=== PATIENT | female | born 1975 | race Caucasian/White ===

== ENCOUNTER 2019-02-16 05:59 | Observation (INO) ==
--- NOTE | 2019-01-22 10:38 | PAT Medication Instructions ---
Medication Instructions Date of Service January 22, 2019 Home Medications aspirin 81 mg PO QPM escitalopram oxalate [Lexapro] 5 mg PO QPM lisinopril 5 mg PO QAM multivitamin 1 tab PO QAM simvastatin 40 mg PO HS ASK your prescriber and surgeon aspirin 81 mg PO QPM DO NOT take the morning of surgery lisinopril 5 mg PO QAM multivitamin 1 tab PO QAM Take evening before surgery escitalopram oxalate [Lexapro] 5 mg PO QPM simvastatin 40 mg PO HS Other Notes If you have any questions please call us at [phone] or [phone] or [phone] or [phone]
--- NOTE | 2019-01-26 14:29 | Anesthesiology Consultation ---
Date of Service January 26, 2019 Assessment & Plan (1) Encounter for pre-operative examination: - Check test AM DOS - ASA instructions per surgeon/presciber. Chart Review Chart Review: Acceptable Risk for Surgery and Patient seen in Pre Admission Testing Teaching & Discussion Pre-Anesthesia Teaching/Discussion Notes: Instructed NPO after midnight before surgery,except medications with 15 cc of water. Medication instructions provided according to the PAT guidelines. History Surgery Operation Date: 02/16/19 10:50 Proposed Procedures p Robotic Total Laparoscopic Hysterectomy - Meir Meraz MD Height/Weight Height: 5 ft 2 in Weight: 67.7 kg Allergies Allergy/AdvReac Type Severity Reaction Status Date / Time No Known Drug Allergies Allergy Verified 01/20/19 12:55 adhesive AdvReac Redness of Verified 01/20/19 12:55 Skin Medications Home Medications Medication Instructions Recorded Confirmed Last Taken aspirin 81 mg PO QPM 01/20/19 01/20/19 Unknown escitalopram oxalate [Lexapro] 5 mg PO QPM 01/20/19 01/20/19 Unknown lisinopril 5 mg PO QAM 01/20/19 01/20/19 Unknown multivitamin 1 tab PO QAM 01/20/19 01/20/19 Unknown simvastatin 40 mg PO HS 01/20/19 01/20/19 Unknown Past Medical History Medical History Anxiety Dysfunctional uterine bleeding Hyperlipidemia Hypertension IBS (irritable bowel syndrome) Migraine Palpitations S/P UNREMARKABLE HOLTER MONITOR Stroke 2010= LEFT CAROTID ARTERY DISSECTION= NO RESIDUAL EFFECTS; ON ASA Uterine fibroid Exercise / Class Metabolic Activity II 4-5 Yardwork/Stairs/Walk up hill Past Family History Family History Mother Family history of diabetes mellitus Family/Other Family history of esophageal cancer Past Surgical History Surgical History History of surgery ESSURE IMPLANTATION History of wisdom tooth extraction Past Anesthesia History No Hx of Anesthesia Complications and No Family Hx of Anesthesia Complications History of PONV No Hx of PONV and No Hx of Motion Sickness Social History Smoking Status: Never smoker Do You Dip or Chew Tobacco: No Hx Alcohol Use: Yes Alcohol type: beer, wine and hard liquor alcohol intake frequency: holidays/special occasions only Hx Substance Use: No substance use type: does not use Review of Systems Patient denies chest pain, shortness of breath, dyspnea on exertion, reflux, cough, wheezing, palpitations. Physical Exam Vital Signs VITALS BP 109/78 P 70 TEMP 98.4 SP02 97%RA RESP 16 PHYSICAL Full neck and c-spine range of motion. Full TMJ range of motion. TMD 3.5 finger breaths Mallampati Score 2 Dentition: intact Lungs: clear throughout to auscultation Cardiac: regular rate and rhythm, no murmurs noted Spine: scoliosis Carotid arteries: negative bruit Extremities: no edema Testing Laboratory Results 01/26/19 14:43 Blood Type A Positive Antibody Screen NEGATIVE Chest X-Ray Date: 03/26/18 Findings: + NAD Mild leftward thoracolumbar scoliosis. Other Testing 01/15/19 WBC 7.3 H/H 11.1/35.8 PLT 407
[2019-02-16] MEDS ORDERED: CEFAZOLIN 2000MG 2,000 MG/15 ML SYR IV SCH (06:00)
[2019-02-16] MEDS ORDERED: PHENAZOPYRIDINE HCL 100 MG TAB PO SCH (06:00)
[2019-02-16] MEDS ORDERED: LR 15ML/HR IV SCH (06:00)
[2019-02-16] MEDS ORDERED: LACTATED RINGER'S 1,000 ML IV SCH (06:00)
[2019-02-16 06:51] LABS: Basophils # (auto) 0.03 K/uL (0-0.2); Basophils % (auto) 0.4 %; Eosinophils # (auto) 0.11 K/uL (0-0.5); Eosinophils % (auto) 1.3 %; Hematocrit (blood only) 33.5 % (37-47); Hemoglobin 10.7 g/dL (12.0-16.0); Immature Granulocytes # (auto) 0.02 K/uL (0.00-0.02); Immature Granulocytes % (auto) 0.2 %; Lymphocytes # (auto) 2.89 K/uL (1.2-3.4); Lymphocytes % (auto) 34.1 %; Mean Corpuscular Volume 78.5 fL (80-100); Mean Platelet Volume 9.5 fL (7.4-10.4); Monocytes # (auto) 0.57 K/uL (0.11-0.59); Monocytes % (auto) 6.7 %; Neutrophils # (auto) 4.85 K/uL (1.4-6.5); Neutrophils % (auto) 57.3 %; Platelet Count 341 K/uL (130-400); RDW Coefficient of Variation 15.6 % (11.5-14.5); RDW Standard Deviation 45.1 fL (36.4-46.3); Red Blood Count 4.27 M/uL (4.2-5.4); White Blood Count 8.47 K/uL (4.8-10.8)
[2019-02-16 06:54] LABS: Mean Corpuscular Hgb Conc 31.9 g/dL (32-36)
[2019-02-16] MEDS ORDERED: ONDANSETRON INJ 2 MG/ML 2 ML VIAL IV PRN ×2 (06:54→10:02)
[2019-02-16] MEDS ORDERED: ePHEDrine sulfate 50 MG/ML AMP IV PRN (06:54)
[2019-02-16] MEDS ORDERED: ATROPINE SULFATE 0.1 MG/ML 10ML SYR IV PRN (06:54)
[2019-02-16] MEDS ORDERED: PHENYLEPHRINE 100MCG/ML 5ML SYR IV PRN (06:54)
[2019-02-16] MEDS ORDERED: MEPERIDINE HCL 25 MG/ML CARP IV PRN (06:54)
[2019-02-16] MEDS ORDERED: LABETALOL HCL IV 5 MG/ML 20ML IV PRN (06:54)
[2019-02-16] MEDS ORDERED: BUPIVACAINE 0.5 % 5 MG/1 ML MPF 30ML VIAL ONE (07:00)
[2019-02-16] MEDS ORDERED: GLYCOPYRROLATE 0.2 MG/ML VIAL ONE (07:01)
[2019-02-16] MEDS ORDERED: PROPOFOL IV EMULSION 10 MG/ML 20 ML VIAL IV ONE (07:01)
[2019-02-16] MEDS ORDERED: NEOSTIGMINE METHYLSULFATE 5 MG/5 ML SYR ONE (07:01)
[2019-02-16] MEDS ORDERED: ONDANSETRON INJ 2 MG/ML 2 ML VIAL ONE (07:01)
[2019-02-16] MEDS ORDERED: LIDOCAINE HCL 2% 2 ML VIAL/AMP(20MG/ML) INFIL ONE (07:01)
[2019-02-16] MEDS ORDERED: DEXAMETHASONE SOD INJ 4 MG/ML VIAL ONE (07:01)
[2019-02-16] MEDS ORDERED: fentaNYL citrate 100 MCG/2 ML VIAL ONE (07:02)
[2019-02-16] MEDS ORDERED: MIDAZOLAM HCL 1 MG/ML 2ML VIAL ONE (07:02)
--- NOTE | 2019-02-16 07:11 | History & Physical Bridge Note ---
Date of Service February 16, 2019 History & Physical Bridge Note I have examined the patient, reviewed the History & Physical and in the interval since the performance of the History & Physical I have noted the following changes of clinical significance: no changes noted
[2019-02-16] MEDS ORDERED: ROCURONIUM BROMIDE 10 MG/ML 5 ML VIAL ONE (08:37)
[2019-02-16] MEDS ORDERED: KETOROLAC 30 MG/ML VIAL ONE (09:47)
[2019-02-16] MEDS ORDERED: KETOROLAC 30 MG/ML VIAL IV PRN (10:02)
[2019-02-16] MEDS ORDERED: OXYCODONE/ACETAMINOPHEN 5mg/325mg TAB PO PRN (10:02)
[2019-02-16] MEDS ORDERED: SIMETHICONE 80 MG CHEW PO PRN (10:02)
[2019-02-16] MEDS ORDERED: PROMETHAZINE HCL 12.5 MG in SODIUM CHLORIDE 0.9% 50 ML IV PRN (10:02)
[2019-02-16] MEDS ORDERED: ACETAMINOPHEN 325 MG TAB PO PRN (10:02)
[2019-02-16] MEDS ORDERED: BISACODYL 10 MG SUPP PR PRN (10:02)
--- NOTE | 2019-02-16 10:02 | Post Operative Brief Note ---
Immediate Post Op Note v1 Date of Surgery February 16, 2019 Pre & Post Diagnosis Operation Date: 02/16/19 07:30 Pre-Op Diagnosis: Dysfunctional Uterine Bleeding, Uterine Fibroid Post-Op Diagnosis: Dysfunctional Uterine Bleeding, Uterine Fibroid, Endometriosis Procedure Operation Date: 02/16/19 07:30 Actual Procedures p Robotic Assisted Total Laparoscopic Hysterectomy with Bilateral Salpingectomies, left oophorectomy and Cystoscopy. (Not Applicable) - Meir Meraz MD Surgeon Meir Meraz MD assistant professor of history: Dr. Downing Office Mover Dr. Downing Estimated Blood Loss 20 Findings Consistent with Post-Op Diagnosis Drains Dennison Catheter
[2019-02-16] MEDS: fentaNYL citrate 100 MCG/2 ML VIAL IV PRN ×4 (10:23→10:40)
[2019-02-16] MEDS: HYDROmorphone INJ 1 MG/ML SYRINGE IV PRN ×2 (10:50→10:55)
--- NOTE | 2019-02-16 11:20 | Anesthesiology Progress Note ---
Date of Service February 16, 2019 Anesthesia Post Procedure Vital Signs Vital Signs: Temp Pulse Pulse Resp BP Pulse Ox 02/16/19 11:10 37.1 C 98 H 16 114/70 97 02/16/19 11:00 37.1 C 101 H 16 111/69 97 02/16/19 10:50 36.8 C 95 H 13 111/75 97 02/16/19 10:40 36.8 C 97 H 12 113/71 98 02/16/19 10:30 36.8 C 88 13 119/84 99 02/16/19 10:20 36.8 C 91 H 14 128/84 100 02/16/19 10:12 36.8 C 95 H 16 128/69 100 02/16/19 06:26 36.9 C 71 18 126/69 100 Pain Intensity Abdomen: Pain Intensity: 3 Transfer of Care Handoff Completed per policy Notes Mental Status: alert / awake / arousable Patient Amnestic to Procedure: Yes Nausea / Vomiting: adequately controlled Pain: adequately controlled Airway Patency, RR, SpO2: stable & adequate BP & HR: stable & adequate Hydration State: stable & adequate Anesthetic Complications: no major complications apparent and Pt Satisfied with anesthetic care
[2019-02-16] MEDS: IBUPROFEN 600 MG TAB PO PRN ×2 (12:03→15:50)
[2019-02-16] MEDS ORDERED: DOCUSATE SODIUM 100 MG CAP PO SCH (21:00)
--- NOTE | 2019-02-18 10:35 | Discharge Summary ---
SURGEON: Meir Meraz MD PROCEDURES PERFORMED WHILE ADMITTED: Robotic-assisted total laparoscopic hysterectomy, bilateral salpingectomy, left oophorectomy, and cystoscopy. HOSPITAL COURSE: The patient presented on day of procedure for the above-noted procedures. Upon presentation, she was properly identified. The procedures then were performed without complication. The patient recovered well and was discharged home on same day of procedure without issue. The patient was provided with both written and verbal postoperative precautions and was discharged home in stable condition with planned follow up in 2 weeks.
--- NOTE | 2019-02-18 11:19 | Operative Report ---
DATE OF OPERATION: 02/16/2019 PROCEDURE: Robotic-assisted total laparoscopic hysterectomy, bilateral salpingectomy, left oophorectomy, and cystoscopy. SURGEON: Meir Meraz MD RN PERIOPERATIVE: Rolando Downing MD PREOPERATIVE DIAGNOSES: 1. Dysfunctional uterine bleeding. 2. Uterine fibroids. 3. Pelvic pain. POSTOPERATIVE DIAGNOSES: 1. Dysfunctional uterine bleeding. 2. Uterine fibroids. 3. Pelvic pain. 4. Endometriosis. ESTIMATED BLOOD LOSS: 20 mL. DRAINS: Dennison. FLUIDS: Continuous lactated Ringer. URINE OUTPUT: 300 mL via Dennison. DRAINS: None. COMPLICATIONS: None. INDICATIONS: Mine is a 43-year-old G3, P2-0-1-2, who initially presented for dysfunctional uterine bleeding as well as pelvic pain. The patient was noted to have somewhat regular menstrual cycles roughly at 28-30 days with 5-7 days of bleeding. The patient was, however, noted to have very heavy bleeding for approximately 3-4 days of that cycle, at which time she was typically saturating a pad within a half hour to 45 minutes. The patient was noted to have very significant disruption in her daily activities due to the heavy bleeding. She underwent a transvaginal ultrasound during her evaluation and was noted to have an enlarged uterus measuring 9.9 x 5.3 x 7.3 cm. There was noted to be a heterogeneous echotexture throughout the myometrium which was concerning for adenomyosis due to the patient's symptoms as well as the enlarged uterus. The patient reports that she was told previously she had uterine fibroids, although that was not appreciated on the ultrasound performed for this evaluation. Management options for dysfunctional uterine bleeding and pain were discussed. The patient opted to proceed with total laparoscopic hysterectomy with bilateral salpingectomy with removal of ovaries if abnormal and cystoscopy. Consents were reviewed and signed in clinic. FINDINGS: There was noted to be an enlarged roughly 10-to 11-week sized uterus. The right tube and ovary were within normal limits. The left tube and ovary were noted to have a large endometriotic lesion that caused the left adnexa to be pulled upwards and were adherent to the left lateral sidewall above the pelvic inlet. Due to the endometriotic lesion being attached to the ovary, the ovary was dissected off the lateral sidewall and was removed during the procedure. There was noted to be bilateral ureteral efflux and intact bladder on cystoscopy. DESCRIPTION OF PROCEDURE: The patient was taken to the operating room after consents were assured. Upon presentation, she was properly identified. General endotracheal anesthesia was obtained without difficulty. Mine was then prepped and draped in the normal sterile fashion and a preprocedural timeout was performed. A lubricated speculum was then placed within the vagina. A single tooth tenaculum was placed on the superior aspect of the cervix and a VCare uterine manipulator was placed without difficulty. The laparoscopic portion of the case was then initiated. An incision was made on the superior aspect of the umbilicus to support a 12 mm trocar. The Veress needle was inserted through the incision and the abdomen was insufflated to 15 mmHg. A 12 mm optically guided trocar was then placed through the incision and on inspection was noted to have atraumatic entry, and inspection of the abdomen was then performed with the findings as noted above. The 8 mm trocar was then placed in the right and left lower quadrants under direct visualization with atraumatic entry noted. A 5 mm trocar was placed in the left upper quadrant under direct visualization and atraumatic entry noted. The robot was then docked. The procedure was started on the left lateral sidewall trying to dissect the ovary from the left lateral sidewall with the endometriotic lesion removed with the ovary. The initial adhesions were first removed freeing the descending colon. The left round ligament was then identified, serially cauterized and dissected. This was allowed to open up the retroperitoneal space removing towards the lateral sidewall. This was connected with the opening in the peritoneum, started at the left sidewall near the endometriotic lesion. This allowed the ovary to become freed from the lateral sidewall and restore normal anatomy of the IP ligament. It was decided, however, to leave the left adnexa for removal after the hysterectomy was completed. The left uteroovarian ligament and vessels were serially cauterized and dissected joining to the level of the dissected portion of the round ligament. The anterior bladder flap was then started on the left side continuing towards the right with a dissection plane easily established. The left broad ligament was then dissected down to the level of the uterine vessels. There was noted to be rather quite tortuous uterine vessels on that left side and they were left intact at this stage of the procedure. The right fallopian tube was then identified and the mesosalpinx serially cauterized and dissected down to the level of the cornua, freeing the tube from the ovary. The round ligament on the right side was then cauterized and dissected opening the retroperitoneal space and allowing the continuation of the bladder flap anteriorly joining with the bladder flap initiated on the left side. The bladder was then easily dissected off of the lower uterine segment and cervix creating a nice plane for visualization of the VCare uterine manipulator. The right uteroovarian ligament was then identified, serially cauterized and dissected and this was continued to the level of the dissected portion of the round ligament. The broad ligament was then dissected down to the level of the uterine vessels on the right side. There was noted to be a well-established VCare manipulator with bladder well dissected off of the cervix. The right uterine vessels were then serially cauterized and dissected. The left uterine vessels were then serially cauterized and dissected. The colpotomy was then started anteriorly and continued circumferentially around the VCare uterine manipulator freeing the cervix from the vaginal mucosa. The uterus was then removed through the vaginal cuff. The attention was then turned towards the left ovary which had just previously been freed from the left sidewall of the pelvis. The tube and ovary were then grasped, the IP ligament serially cauterized and dissected freeing the ovary. The ovary was then removed through the vaginal cuff. The pelvis was then suction irrigated and the vaginal cuff was closed with V-Loc suture in continuous running stitch. There was noted to be an airtight seal at the completion of the closure and all pedicles were noted to be hemostatic on inspection. The robot was then undocked. A cystoscopy was performed with intact bladder and bilateral ureteral efflux noted. The trocars were then removed and the fascia at the umbilical incision was closed with 0 Vicryl in an interrupted stitch. The skin was reapproximated at all trocars with 4-0 Monocryl with interrupted stitch. Dermabond was placed to help with reapproximation of the dermal layers. Needle, sponge, and instrument counts were correct at the completion of the case. I attest to the content of the Intraoperative Record and any orders documented therein. Any exception s are noted below.
== END 2019-02-16 16:22 | disposition home or self-care (01) ==
LOC: 4N 05:59 → ASU 05:59